=== PATIENT | female | born 1990 | race African-American/Black ===

== ENCOUNTER 2022-07-30 15:58 | Outpatient (REF) | payer OTHER, SELFPAY ==
[2022-07-31 15:15] LABS: H Pylori Breath Test Negative (Negative)
== END 2022-07-30 15:59 | disposition home or self-care (01) ==
LOC: HO.LNP 15:58
PROVIDERS: Visit Provider Physician Assistant
DX: E66.01 Morbid (severe) obesity due to excess calories (principal); Z98.890 Other specified postprocedural states; Z11.0 Encounter for screening for intestinal infectious diseases
CPT/HCPCS: 83013

== ENCOUNTER 2022-09-07 06:56 | Outpatient (REF) | payer OTHER, SELFPAY ==
--- NOTE | ~2022-09-07 | XR_ITS ---
EXAMINATION: XR CHEST CLINICAL INFORMATION: Bariatric service evaluation. E66.01. COMPARISON: None TECHNIQUE: 2 views of the chest were obtained. FINDINGS: The lungs are clear. There is no airspace consolidation or groundglass opacity or effusion. Heart size normal. Vascularity normal. The hilar and mediastinal contours are normal. There is gentle levocurvature lower thoracic spine. XR/XR chest 2V IMPRESSION: Lungs clear.
--- NOTE | ~2022-09-07 | FL_ITS ---
EXAMINATION: XR FLUOROSCOPY UPPER GI WITH AIR CLINICAL INFORMATION: Obesity. History of gastric sleeve procedure COMPARISON: None TECHNIQUE: Upper GI was performed using thin and thick barium and effervescent granules FINDINGS: Esophageal motility is normal. No hernia or reflux is seen. Evidence of gastric sleeve procedure not definitely appreciated. The stomach and duodenum are unremarkable. No fold thickening, mass, ulcer or stricture is seen. FLUOROSCOPY TIME: 0.6 DOSE AREA PRODUCT: 7.8 Justice per centimeter squared. 19 saved fluoroscopic images. FL/FL upper GI w air IMPRESSION: Unremarkable examination. Evidence of gastric sleeve procedure not definitely appreciated.
--- NOTE | ~2022-09-07 | US_ITS ---
EXAMINATION: US COMPLETE ABDOMEN WITH LIVER ELASTOGRAPHY CLINICAL INFORMATION: Morbid/severe obesity due to excess calories. COMPARISON: None. TECHNIQUE: Real-time imaging of the abdominal viscera. Noninvasive ultrasound liver fibrosis assessment is performed using [employer]ed[employer] ElastPQ point quantification shear wave elastography (2D-SWE) with a C5-2 MHz transducer. Multiple elastography samples are obtained. FINDINGS: PANCREAS: Normal. The visualized pancreatic head and body are normal in appearance. The remainder of the pancreas is obscured from visualization by the overlying bowel gas. ABDOMINAL AORTA: The proximal, middle, and distal aortic segments are normal in caliber. INFERIOR VENA CAVA: Visualized portions are normal. LIVER: The liver demonstrates normal size, contour and mild increased echogenicity. No focal lesion or intrahepatic biliary duct dilatation. The right lobe measures 16.2 cm in length. The left lobe measures 11.0 cm in length. Portal flow is hepatopedal. Shear wave liver elastography median stiffness is 1.65 m/s (reference: normal median stiffness is 1.3 m/s or less). IQR/median stiffness to assess sampling precision is 0.19 (reference: good quality data set is IQR/median stiffness of 0.15 or less). GALLBLADDER: Normal. The gallbladder is physiologically distended without evidence of stones, sludge, polyps, wall thickening or pericholecystic fluid. COMMON BILE DUCT: Normal in caliber measuring 0.36 cm in diameter. RIGHT KIDNEY: Normal. No hydronephrosis. No renal calculi or focal parenchymal lesions. The kidney measures 10.3 cm in maximum dimension. LEFT KIDNEY: Normal. No hydronephrosis. No renal calculi or focal parenchymal lesions. The kidney measures 11.3 cm in maximum dimension. SPLEEN: Normal. The spleen measures 9.1 cm in maximum dimension. FREE FLUID: None. US/US abdomen comp w elastography IMPRESSION: 1. 1. Mildly increased echogenicity without focal liver lesion. 2. The rest of the abdominal ultrasound is unremarkable. 3. Liver elastography: Median liver stiffness measures 1.65 m/s corresponding to cACLD (ruled out). REFERENCE: Society of Radiologists in Ultrasound Liver Stiffness Thresholds (2019): LIVER STIFFNESS THRESHOLDS: *Liver Stiffness equal or less than 1.3 m/s: High probability of being normal. *Liver Stiffness less than 1.7 m/s: In the absence of other known clinical signs, rules out compensated advanced chronic liver disease. *Liver Stiffness 1.7-2.1 m/s: Suggestive of compensated advanced chronic liver disease but need further test for confirmation. *Liver Stiffness over 2.1 m/s: Rules in compensated advanced chronic liver disease. *Liver Stiffness over 2.4 m/s: Suggestive of clinically significant portal hypertension. QUALITY OF DATA SET: *IQR/Median value equal or less than 0.15 implies a quality data set. *IQR/Median value over 0.15 implies a poor quality data set. SIGNIFICANT CHANGE FROM PRIOR EXAM: Significant change if liver stiffness measurement is 10% or greater from prior exam. OTHER CONSIDERATIONS: The stage of liver fibrosis may be overestimated in the setting of acute hepatitis, liver inflammation, elevated liver function tests, hepatic vascular congestion, obstructive cholestasis, non-fasting state, and infiltrative diseases such as amyloidosis and lymphoma. In some patients with NAFLD, the liver stiffness thresholds for compensated advanced chronic liver disease may be lower. In causes other than viral hepatitis and NAFLD, liver stiffness thresholds are not well established.
[2022-09-07 07:12] LABS: MANUAL DIFF FLAG NO
[2022-09-07 07:34] LABS: Basophils Percent Auto 0.4 % (0-2); Eosinophils Absolute Auto 0.2 X10*3/uL (0.0-0.4); Eosinophils Percent Auto 1.9 % (0-4); Hematocrit 37.8 % (37.0-47.0); Hemoglobin 11.6 g/dl (12.0-16.0); Imm Gran Abs Auto 0.06 X10*3/uL (0.00-0.03); Imm Gran Pct Auto 0.6 % (0.0-0.4); Lymphocytes Absolute Auto 2.5 X10*3/uL (1.2-4.9); Lymphocytes Percent Auto 25.2 % (20-40); Mean Corpuscular HGB Conc 30.7 g/dl (31.0-35.0); Mean Corpuscular Hemoglobin 23.3 pg (27.0-33.0); Mean Corpuscular Volume 75.9 fL (80.0-98.0); Mean Platelet Volume 10.7 fL (9.4-12.3); Monocytes Absolute Auto 0.6 X10*3/uL (0.1-1.2); Monocytes Percent Auto 5.5 % (2-11); Neutrophils Absolute Auto 6.6 x10*3/uL (2.0-8.3); Neutrophils Percent Auto 66.4 % (45-73); Platelet Count 281 X10*3/uL (160-400); Red Blood Count 4.98 X10*6/uL (4.20-5.50); Red Cell Distribution Width 14.2 % (11.0-16.0); White Blood Count 9.9 X10*3/uL (4.8-10.8)
[2022-09-07 07:49] LABS: Estimated Average Glucose 85 mg/dL; Hemoglobin A1c % 4.6 %
[2022-09-07 08:17] LABS: Alanine Aminotransferase 19 U/L (0-31); Albumin Level 4.1 g/dL (3.5-5.0); Alkaline Phosphatase 56 U/L (39-117); Anion Gap 10 (12-20); Aspartate Amino Transferase 21 U/L (5-31); Bilirubin Total 0.7 mg/dL (0.0-1.0); Blood Urea Nitrogen 9 mg/dL (9-16); C Reactive Protein 0.15 mg/dL (< or = 0.50); Calcium 8.8 mg/dL (8.4-10.2); Carbon Dioxide 28 mmol/L (22-29); Chloride 107 mmol/L (96-108); Cholesterol 109 mg/dL; Estimated Glomerular Filt Rate > 60; Ferritin 266 ng/mL (10-122); Glucose Random 87 mg/dL (60-115); HDL Cholesterol 38 mg/dL; Insulin 14 uU/mL (2-29); Iron 125 mcg/dL (30-160); LDL Cholesterol Calculated 53 mg/dl; Percent Iron Saturation 42 % (15-50); Potassium 4.2 mmol/L (3.3-5.1); Sodium 141 mmol/L (135-145); TSH reflex Free T4 1.13 uIU/mL (0.32-4.0); Total Iron Binding Capacity 295 mcg/dL (228-428); Total Protein 6.8 g/dL (6.5-8.0); Triglycerides 90 mg/dL; Unsaturated Iron Binding 170 ug/dL; Vitamin D 25-OH Total 8.2 ng/mL (>30)
[2022-09-07 08:22] LABS: Folate 3.9 ng/mL (> or = 4.0); Vitamin B12 216 pg/mL (200-900)
--- NOTE | 2022-09-07 09:15 | ECG_ITS ---
Test Reason : e66.01 Blood Pressure : / mmHG Vent. Rate : 081 BPM Atrial Rate : 081 BPM P-R Int : 136 ms QRS Dur : 082 ms QT Int : 352 ms P-R-T Axes : 033 059 018 degrees QTc Int : 408 ms Normal sinus rhythm Normal ECG No previous ECGs available Referred By: Paddy Davison Electronically Signed By:OTILIO DIAMOND
[2022-09-08 11:48] LABS: Calcium (PTHI) 8.8 mg/dL (8.6-10.2); PTHI 163 pg/mL (16-77)
[2022-09-12 14:53] LABS: Vitamin B1 <6 nmol/L (8-30)
[2022-09-12 19:14] LABS: Zinc 89 mcg/dL (60-130)
[2022-09-13 11:09] LABS: Vitamin A 53 mcg/dL (38-98)
== END 2022-09-07 06:57 | disposition home or self-care (01) ==
LOC: HO.US 06:56
PROVIDERS: Absent Provider Physician Assistant Surgical; PCP Internal Medicine; Visit Provider Physician Assistant
DX: E66.01 Morbid (severe) obesity due to excess calories (principal); Z98.890 Other specified postprocedural states
CPT/HCPCS: 36415; 71046; 74246; 76705; 76981; 80053; 80061; 82306; 82607; 82728; 82746; 83036; 83525; 83540; 83970; 84425; 84443; 84590; 84630; 85025; 86140; 93005

== ENCOUNTER → 2022-09-16 10:00 | Outpatient (BNVA) | payer OTHER, SELFPAY | PROVIDERS: PCP Internal Medicine; Visit Provider Counselor Mental Health | DX: F43.20 Adjustment disorder, unspecified (principal); E66.01 Morbid (severe) obesity due to excess calories; Z98.84 Bariatric surgery status | CPT/HCPCS: 90791 ==

== ENCOUNTER → 2022-09-21 15:22 | Outpatient (BNVA) | payer OTHER, SELFPAY | PROVIDERS: PCP Internal Medicine; Referring Provider Physician Assistant; Visit Provider Dietitian, Registered | DX: E66.01 Morbid (severe) obesity due to excess calories (principal); Z68.39 Body mass index [BMI] 39.0-39.9, adult | CPT/HCPCS: 97802 ==

== ENCOUNTER → 2022-10-01 08:44 | Outpatient (BNVA) | payer OTHER, SELFPAY | PROVIDERS: PCP Internal Medicine; Visit Provider Physician Assistant | DX: Z98.84 Bariatric surgery status (principal) ==

== ENCOUNTER → 2022-10-07 14:08 | Outpatient (BNVA) | payer OTHER, SELFPAY | PROVIDERS: PCP Internal Medicine; Visit Provider Counselor Mental Health | DX: Z01.818 Encounter for other preprocedural examination (principal); E66.9 Obesity, unspecified | CPT/HCPCS: H0046 ==

== ENCOUNTER → 2022-10-18 08:11 | Outpatient (BNVA) | payer OTHER, SELFPAY | PROVIDERS: PCP Internal Medicine; Visit Provider Surgery | DX: Z13.89 Encounter for screening for other disorder (principal) ==

== ENCOUNTER → 2022-10-22 12:14 | Outpatient (BNVA) | payer OTHER, SELFPAY | PROVIDERS: PCP Internal Medicine; Visit Provider Physician Assistant | DX: E66.9 Obesity, unspecified (principal) ==

== ENCOUNTER 2022-10-26 06:27 | Day surgery (SDC) | payer OTHER, SELFPAY ==
--- NOTE | 2022-10-23 00:01 | MHC.SHP ---
Pre-Procedural Eval Section A Date of Service: 10/23/22 The patient is an INPATIENT: No The History & Physical has been completed within 30 days and I have reviewed it.: Yes Section B Chief Complaint: Bariatric surgery status Relevant Family History (Specify if Yes): No Relevant Social History: None Present Medications: None Medical History: No relevant PMH History of Previous Operations: Relevant previous surgery/procedure and date(s) (laparoscopic sleeve gastrectomy) Allergies: Allergies Allergy/AdvReac Type Severity Reaction Status Date / Time egg [EGG] Allergy Unknown UNKNOWN Verified 10/22/22 12:18 Review of Systems Sugical H&P ROS: Negative: Constitution, Cardiovascular, Respiratory, Neurological, Psychiatric, Hem-Onc, Allergic/Immunologic, Gastrointestinal, Genitourinary, Musculoskeletal, Integumentary, Endocrine and Eyes/Ears/Nose/Throat Exam Surgical H&P Exam: Normal: HEENT, Normal: Heart, Normal: Lungs, Normal: Extremities, Normal: Abdomen, Normal: Skin and Normal: Neurological Plan Diagnosis/Plan: Unchanged (EGD to assess for esphagitis. Risks for perforation and bleeding were discussed with patient. She is in agreement with the plan) I have reviewed the history and physical and performed a pertinent physical examination on my patient. No changes have occurred unless specified. Time Spent With Patient Time: Total time managing care of this patient today ____ minutes.
[2022-10-25 12:52] LABS: COVID-19 Test Negative (Negative); IDNOW Serial# 16C4AD1C
[2022-10-26 06:48] VITALS: BP 149/100; PULSE 97; RESP 18; TEMP 36.4; O2SAT 98; BMI 37.4
[2022-10-26] MEDS: Lactated Ringers 1,000 ML 50 ML IVCONT (07:20)
--- NOTE | 2022-10-26 07:36 | PC.NURSE ---
pt unable to void x 3 attempts despite ivfluids LR infusing bolus. Dr. Remy aware, pt aware of risk of having anesthesia if she is in fact , has IUD in place. Dr. Burrows, floor anesthesiologist also aware.
--- NOTE | 2022-10-26 07:44 | PC.NURSE ---
decision to proceed by both Dr. Remy and pt
--- NOTE | 2022-10-26 07:55 | HO.ANESPROP2 ---
HPI - Anesthesia Eval Consult details Narrative: 32 yo female patient for EGD PMFSH Active Problems Active Problems: All Active Problems (Updated 10/18/22 @ 12:40 by Corky Victoria MD) BMI 37.0-37.9, adult (Acute) Obesity (Acute) Adjustment disorder, unspecified (Acute) S/P laparoscopic sleeve gastrectomy (Acute) Pre-op evaluation (Acute) History of gastric surgery (Acute) Morbid obesity (Acute) Family History Family History Mother Cardiac arrest Hypertension Father Diabetes COPD (chronic obstructive pulmonary disease) Sister Cardiac abnormality Sister No problems noted. Family history of problems with anesthesia: No Surgical History Surgical History (Updated 10/26/22 @ 07:59 by Devora Remy MD) History of esophagogastroduodenoscopy (EGD) History of foot surgery History of sleeve gastrectomy History of tonsillectomy History of Problems with Anesthesia: No Social History Social History Alcohol intake: current Alcohol intake frequency: holidays/special occasions only Patient Tobacco Use Status: Never used Tobacco Use of substances other than those prescribed or required for medical reasons: No Are you DNR?: No Advance Directives: No Advance Directives Information Provided: Yes Meds Allergies Allergy/AdvReac Type Severity Reaction Status Date / Time egg [EGG] Allergy Unknown UNKNOWN Verified 10/22/22 12:18 Active Medications: Current Medications Lactated Ringer's (Lr) 1,000 mls @ 80 mls/hr IVCONT .[id number] JOSE Lactated Ringer's (Lr) 1,000 mls @ 50 mls/hr IVCONT .Q20H JOSE Last Admin: 10/26/22 07:20 Dose: 50 mls/hr Exam Exam Date and Time: October 26, 2022 0755 Height,Weight and Vital Signs: Height 5 ft 6 in Weight 105.233 kg Last Vital Signs Temp 97.6 F 10/26/22 06:48 Pulse 97 10/26/22 06:48 Resp 18 10/26/22 06:48 BP 149/100 H 10/26/22 06:48 Pulse Ox 98 10/26/22 06:48 O2 Del Method 10/26/22 06:48 Pertinent Lab Results Pertinent Lab Results: Laboratory Tests 10/25/22 12:25 COVID-19 ([facility]) Negative COVID-19 Clin Com See Note Narrative Narrative: Patient states unable to give urine sample for UHcg. States has IUCD in place. Has some spotting now. Denies any chance of . Aware that chance of spontaneous miscarriage, theoretical chance of teratogenicity. Patient states understands and wishes to proceed. Airway Mallampati Class: III TM Dist: >3cm Neck ROM: Full Loose/Missing/Broken Teeth: No (Denies broken, loose, missing teeth) Heart: RRR Lungs: CTAB Assessment and Plan Assessment Anesthesia Assessment: Anesthesia Plan Discussed and Chart Reviewed Final Anesthetic Review Family History of Problems with Anesthesia: No History of Problems with Anesthesia: No NPO: Yes ASA Class: III Final Preanesthetic Review: No Changes in Pt Med Stat, Meds/Allgs Chart Reviewed, Consent Obtained/Reviewed and Anes Risks/Benef Reviewed Patient Risk: Intermediate Procedure Risk: Low Assessment/Block/Sedation in SS: Assess/Block/Sedation-SS Anesthetic Plan Anesthetic Plan: MAC: Disposition: Standard PACU
[2022-10-26 08:06] VITALS: BP 115/70; PULSE 100; RESP 22; TEMP 36.1; O2SAT 95
--- NOTE | 2022-10-26 08:11 | PM.OP ---
Brief Operative Note Date of Service: 10/26/22 Pre-op diagnosis: Weight regain, s/p sleeve gastrectomy Post-op diagnosis: same (Redundant gastric fundus) Procedure: PROCEDURE DATE: 10/26/2022 PREOPERATIVE DIAGNOSIS: Weight regain, s/p sleeve gastrectomy POSTOPERATIVE DIAGNOSIS: ?Same as above. 1) redundant gastric fundus PROCEDURE: [id number] with biopsies Surgeon: ?Johnathan Victoria M.D.. Ph.D. Technical Services Consultant: None ? Anesthesia: IV sedation Estimated blood loss: ?Minimal FINDINGS AND PROCEDURE: ? OPERATIVE INDICATIONS: ?The patient is a 32 year old female known to me who underwent a laparoscopic sleeve gastrectomy e;sewhere. The patient had inadequate weight loss and presents for potential revision of the sleeve.? Based on this information I recommended an upper endoscopy to evaluate the sleeve's anatomy. Risks and complications of the surgery were discussed with the patient in advance particularly the possibility of perforation or bleeding that may require surgical intervention. The patient understood the risks and was in agreement with the plan. ? PROCEDURE: After informed consent was obtained by the patient, the patient was ?transferred to the Operating Room and was placed in the supine position.? After successful induction of IV sedation, a mouth block was inserted and the patient was placed in the left lateral decubitus position. An upper endoscopy was performed next, the oropharynx and esophagus appeared within the normal limits. There was nol hiatal hernia. The z-line was smooth. Two biopsies were obtained from the distal esohagus 2-3 cm proximal to the GE junction and two additional biopsies from the GE junction. The sleeve was entered. There was significant redundancy proximally The distal sleeve was wider proximally narrowing towards the incisura angularis but without a stricture. There was no gastritis at distal antrum. There was no stricture or ulcer. Biopsies were obtained from the proximal sleeve as well as the distal antrum. No significant bleeding was noted from any of the biopsy sites. The scope was then advanced into the duodenum which appeared to be normal as well. At that point the duodenum ?and the sleeve were decompressed and the scope was withdrawn from the patient's mouth. The patient extubated and was transferred in stable condition to the Recovery Room for further care. I was present and performed all steps of the procedure. There were no residents to assist with this case. Johnathan Victoria M.D., Ph.D. Surgeon: Corky Victoria MD Anesthesia: MAC Was an Technical Services Consultant used for this Procedure?: No Estimated blood loss (mL): 0 IV fluids (mL): 400 Urine output (mL): 0 (No Cerda to record output) Pathology: other (1) antrum x1, 2) proximal sleeve/gastric fundus x1, 3) EGJ x2, 4) distal esophagus x2) Condition: stable Disposition: PACU
[2022-10-26 08:21] VITALS: BP 106/76; PULSE 93; RESP 18; TEMP 36.8; O2SAT 100
== END 2022-10-26 09:05 | disposition home or self-care (01) ==
PROVIDERS: Physician Assistant Surgical; PCP Internal Medicine; Visit Provider Surgery
PROC: 0DJ08ZZ Inspection of Upper Intestinal Tract, Via Natural or Artificial Opening Endoscopic (ICD-10-PCS; CPT 43235; principal; 2022-10-26 07:30)
DX: K95.89 Other complications of other bariatric procedure (principal); R63.5 Abnormal weight gain; E66.9 Obesity, unspecified; Z68.37 Body mass index [BMI] 37.0-37.9, adult; K21.9 Gastro-esophageal reflux disease without esophagitis; Z98.84 Bariatric surgery status; K29.50 Unspecified chronic gastritis without bleeding; Z20.822 Contact with and (suspected) exposure to COVID-19
CPT/HCPCS: 43239; 87635; 88305; 88342; J3010